=== PATIENT | female | born 2000 | race Asian ===

== ENCOUNTER 2025-10-09 09:52 | Outpatient (CLI) | payer BC, OTHER | END 2025-10-09 09:53 | disposition home or self-care (01) | LOC: SCSMRI 09:52 | PROVIDERS: ATTEND Orthopaedic Surgery | DX: S83.512A Sprain of anterior cruciate ligament of left knee, initial encounter (principal); S83.412A Sprain of medial collateral ligament of left knee, initial encounter ==